=== PATIENT | male | born 1985 | race Caucasian/White ===

== ENCOUNTER 2018-02-02 05:20 | Emergency (ER) | payer SELFPAY ==
[~2018-02-02] VITALS: Ht 177.8 cm; Wt 82.0 kg
[2018-02-02] MEDS ORDERED: ACETAMINOPHEN WITH CODEINE 300/30MG TABLET PO ONE (06:45)
[2018-02-02 06:53] VITALS: BP 108/74
== END 2018-02-02 09:58 | disposition home or self-care (01) ==
LOC: ER 09:35
DX: S03.02XA Dislocation of jaw, left side, initial encounter (principal); X58.XXXA Exposure to other specified factors, initial encounter; Y93.89 Activity, other specified; Y92.89 Other specified places as the place of occurrence of the external cause; Y99.8 Other external cause status
CPT/HCPCS: 21480; 99284